=== PATIENT | male | born 1990 | race Caucasian/White ===

== ENCOUNTER 2016-04-23 09:31 | Emergency (ER) | payer SELFPAY ==
[2016-04-23] MEDS ORDERED: CEPHALEXIN 250 MG CAPSULE PO STA (10:13)
[2016-04-23] MEDS ORDERED: IBUPROFEN 600 MG TABLET PO STA (10:13)
[2016-04-23] MEDS ORDERED: ACETAMINOPHEN 325 MG TABLET PO STA (10:13)
[2016-04-23] MEDS ORDERED: CEPHALEXIN 250 MG CAPSULE PO ONE (10:17)
[2016-04-23] MEDS ORDERED: ACETAMINOPHEN 325 MG TABLET PO ONE (10:18)
[2016-04-23] MEDS ORDERED: IBUPROFEN 600 MG TABLET PO ONE (10:18)
== END 2016-04-23 10:23 | disposition home or self-care (01) ==
DX: K04.7 Periapical abscess without sinus (principal); K02.9 Dental caries, unspecified
CPT/HCPCS: 99283; A9270